=== PATIENT | female | born 1965 | race Caucasian/White ===

== ENCOUNTER 2022-05-01 19:20 | Emergency (ER) | payer MEDICARE, BC ==
[2022-05-01] MEDS ORDERED: Ondansetron PF 4 MG/2 ML Vial ONE (20:31)
[2022-05-01] MEDS ORDERED: Acetaminophen 500 MG TAB ONE (20:31)
[2022-05-01] MEDS ORDERED: Dexamethasone 10 MG/ML VIAL ONE (20:31)
== END 2022-05-01 21:37 | disposition home or self-care (01) ==
LOC: CSHERS 19:20
DX: U07.1 COVID-19 (principal); F17.210 Nicotine dependence, cigarettes, uncomplicated; I10 Essential (primary) hypertension; E78.00 Pure hypercholesterolemia, unspecified
CPT/HCPCS: 96361; 96374; 96375; J1100; J2405